=== PATIENT | female | born 2000 | race Caucasian/White ===

== ENCOUNTER 2020-02-10 20:12 | Emergency (ER) | payer BC, OTHER ==
[~2020-02-10] VITALS: Ht 160 cm; Wt 88.4 kg
[2020-02-10] MEDS ORDERED: KETOROLAC 30 MG/ML VIAL IVP ONE (20:30)
[2020-02-10 20:40] LABS: BASOPHILS % (AUTO) 0 % (0-10); EOSINOPHILS # (AUTO) 0.2 10^3/uL (0.0-0.3); EOSINOPHILS % (AUTO) 2 % (0-10); HEMATOCRIT 39 % (35-52); HEMOGLOBIN 12.9 G/DL (11.5-16.0); LYMPHOCYTES % (AUTO) 36 % (12-44); MEAN CORPUSCULAR HEMOGLOBIN 31 PG (25-34); MEAN CORPUSCULAR HGB CONC 33 G/DL (32-36); MEAN CORPUSCULAR VOLUME 93 FL (80-99); MEAN PLATELET VOLUME 10.4 FL (7.4-10.4); MONOCYTES # (AUTO) 0.6 X 10^3 (0.0-1.0); MONOCYTES % (AUTO) 6 % (0-12); NEUTROPHILS # (AUTO) 6.2 X 10^3 (1.8-7.8); NEUTROPHILS % (AUTO) 57 % (42-75); PLATELET COUNT 318 10^3/uL (130-400); RED CELL DISTRIBUTION WIDTH 13.2 % (10.0-14.5)
--- NOTE | 2020-02-10 20:41 | ED Chest Pain ---
General Stated Complaint: CP Source: patient Exam Limitations: no limitations History of Present Illness Date Seen by Provider: Feb 10, 2020 Time Seen by Provider: 20:39 Initial Comments To ER with reports of central chest pain sharp in nature since this morning. No shortness of breath. She is currently on clindamycin for some swollen lymph nodes in her neck suspected to be related to a infected left lower molar. No fevers. Timing/Duration: changing over time Severity/Quality: moderate Location: other Radiation: neck Activities at Onset: none ASA po CONSTRUCTION COORDINATOR: No NTG SL CONSTRUCTION COORDINATOR: No Allergies and Home Medications Allergies Coded Allergies: No Known Drug Allergies (Unverified , 02/10/20) Patient Home Medication List Home Medication List Reviewed: Yes Review of Systems Review of Systems Constitutional: see HPI; No chills, No fever EENTM: No Symptoms Reported Respiratory: See HPI Cardiovascular: No Symptoms Reported Gastrointestinal: No Symptoms Reported Genitourinary: No Symptoms Reported Musculoskeletal: no symptoms reported Skin: no symptoms reported Psychiatric/Neurological: No Symptoms Reported Endocrine: No Symptoms Reported Hematologic/Lymphatic: No Symptoms Reported Past Kqzdbfw-Wrtxtv-Bbuzck Hx Patient Social History Recent Foreign Travel: No Contact w/Someone Who Travel: No Physical Exam Vital Signs Capillary Refill : Height, Weight, BMI Height: '" Weight: lbs. oz. kg; BMI Method: General Appearance: No Apparent Distress, WD/WN Neck: Full Range of Motion, Normal Inspection; No Lymphadenopathy (L), No Lymphadenopathy (R) Respiratory: Lungs Clear, Normal Breath Sounds, No Accessory Muscle Use, No Respiratory Distress Cardiovascular: Regular Rate, Rhythm, Normal Peripheral Pulses Gastrointestinal: Normal Bowel Sounds, Non Tender, Soft Extremity: Normal Capillary Refill, Normal Inspection Neurologic/Psychiatric: Alert, Oriented x3 Skin: Normal Color, Warm/Dry Progress/Results/Core Measures Results/Orders Lab Results Laboratory Tests Test 02/10/20 20:25 Range/Units White Blood Count 11.0 4.3-11.0 10^3/uL Red Blood Count 4.21 L 4.35-5.85 10^6/uL Hemoglobin 12.9 11.5-16.0 G/DL Hematocrit 39 35-52 % Mean Corpuscular Volume 93 80-99 FL Mean Corpuscular Hemoglobin 31 25-34 PG Mean Corpuscular Hemoglobin Concent 33 32-36 G/DL Red Cell Distribution Width 13.2 10.0-14.5 % Platelet Count 318 130-400 10^3/uL Mean Platelet Volume 10.4 7.4-10.4 FL Neutrophils (%) (Auto) 57 42-75 % Lymphocytes (%) (Auto) 36 12-44 % Monocytes (%) (Auto) 6 0-12 % Eosinophils (%) (Auto) 2 0-10 % Basophils (%) (Auto) 0 0-10 % Neutrophils # (Auto) 6.2 1.8-7.8 X 10^3 Lymphocytes # (Auto) 4.0 1.0-4.0 X 10^3 Monocytes # (Auto) 0.6 0.0-1.0 X 10^3 Eosinophils # (Auto) 0.2 0.0-0.3 10^3/uL Basophils # (Auto) 0.0 0.0-0.1 10^3/uL Sodium Level 137 135-145 MMOL/L Potassium Level 3.8 3.6-5.0 MMOL/L Chloride Level 104 98-107 MMOL/L Carbon Dioxide Level 24 21-32 MMOL/L Anion Gap 9 5-14 MMOL/L Blood Urea Nitrogen 7 7-18 MG/DL Creatinine 0.74 0.60-1.30 MG/DL Estimat Glomerular Filtration Rate > 60 BUN/Creatinine Ratio 9 Glucose Level 115 H 70-105 MG/DL Calcium Level 9.0 8.5-10.1 MG/DL Corrected Calcium 8.8 8.5-10.1 MG/DL Total Bilirubin 0.3 0.1-1.0 MG/DL Aspartate Amino Transf (AST/SGOT) 19 5-34 U/L Alanine Aminotransferase (ALT/SGPT) 19 0-55 U/L Alkaline Phosphatase 77 40-136 U/L C-Reactive Protein High Sensitivity 0.53 H 0.00-0.50 MG/DL Total Protein 7.4 6.4-8.2 GM/DL Albumin 4.2 3.2-4.5 GM/DL Serum Test, Qualitative NEGATIVE NEGATIVE My Orders Orders - JENIFER CHONG APRN Cbc With Automated Diff (02/10/20 20:30) Comprehensive Metabolic Panel (02/10/20 20:30) Hcg,Qualitative Serum (02/10/20 20:30) Hs C Reactive Protein (02/10/20 20:30) Ekg Tracing (02/10/20 20:30) Chest Pa/Lat (2 View) (02/10/20 20:30) Ed Iv/Invasive Line Start (02/10/20 20:30) Ketorolac Injection (Toradol Injection) (02/10/20 20:30) Medications Given in ED Current Medications Medications Dose Ordered Sig/Leoncio Route Start Time Stop Time Status Last Admin Dose Admin Ketorolac Tromethamine 15 mg ONCE ONCE IVP 02/10/20 20:30 02/10/20 20:33 DC 02/10/20 20:49 15 MG Departure Impression Primary Impression: Chest pain Qualified Codes: R07.9 - Chest pain, unspecified Disposition: HOME, SELF-CARE Condition: Stable Departure-Patient Inst. Decision time for Depature: 21:08 Referrals: NO,LOCAL PHYSICIAN (PCP/Family) Primary Care Physician Patient Instructions: Chest Pain (DC) Add. Discharge Instructions: 1. Return to ER for any concerns 2. FOllow up with your doctor next week. Continue the clindamycin. JENIFER CHONG PRODUCTION SUPPORT CONSULTANT Feb 10, 2020 20:41
[2020-02-10 20:50] LABS: ALANINE AMINOTRANSFERASE 19 U/L (0-55); ALBUMIN 4.2 GM/DL (3.2-4.5); ALKALINE PHOSPHATASE 77 U/L (40-136); BILIRUBIN,TOTAL 0.3 MG/DL (0.1-1.0); BUN/CREATININE RATIO 9; CARBON DIOXIDE 24 MMOL/L (21-32); CHLORIDE 104 MMOL/L (98-107); CREATININE SERUM 0.74 MG/DL (0.60-1.30); GFR ESTIMATED > 60; GLUCOSE 115 MG/DL (70-105); POTASSIUM 3.8 MMOL/L (3.6-5.0); SODIUM 137 MMOL/L (135-145); TOTAL PROTEIN 7.4 GM/DL (6.4-8.2)
--- NOTE | 2020-02-10 21:04 | Diagnostic Imaging Report ---
Indication: Chest pain PA and lateral chest Heart size and pulmonary vascularity are normal. Lungs are clear. There are no effusions or pneumothoraces. IMPRESSION: Negative chest Dictated by: Dictated on workstation # [id number]
[2020-02-10 21:18] VITALS: BP 116/68
--- OUTSIDE RECORDS SUMMARY | 2020-02-11 00:22 | XMS REPORT | Continuity of Care Document ---
Author Organization Unknown Address Unknown Phone Unavailable Allergies Active Description Code Type Severity Reaction Onset Reported/Identified Relationship to Patient Clinical Status Yes BACTRIM DS BACTRIM DS SEVERE Yes Bactrim Drug Allergy N/A N/A 05/27/2014 Yes codeine Drug Allergy N/A N/A 05/27/2014 Yes No Known Drug Allergies [id number] Drug Allergy Unknown N/A 02/10/2020 Medications There is no data. Problems Date Dx Coded Attending Type Code Diagnosis Diagnosed By 05/27/2014 AMISHA FUENTES MD 278. 00 OBESITY UNSPECIFIED 05/27/2014 AMISHA FUENTES MD 314. 01 ADHD, COMBINED TYPE 05/27/2014 AMISHA FUENTES MD 780. 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 06/02/2014 296.32 SID OR DEPRESSIVE AFFECTIVE DISORDER RECURRENT EPISODE MODERATE DEGREE 06/29/2014 296.25 SID OR DEPRESSIVE AFFECTIVE DISORDER SINGLE EPISODE IN PARTIAL OR UNSPECIFIED REMISSION 06/29/2014 788.1 DYSURIA Procedures Code Description [place] [address] CMP (COMPREHENSIVE METABOLIC PANEL) 05/31/2014 12714 LIPI D PANEL (OUTSIDE LAB) 05/31/2014 54428 TSH W/ REFLEX T4 FREE 05/31/2014 46637 CBC, COMPLETE, W/AUTO DIFF WBC 05/31/2014 47205 INIT IAL CONSULT 06/03/2014 08824 URIN E TEST (IN HOUSE) 06/29/2014 69750 URIN E CULTURE AND SENSITIVITY 06/29/2014 51274 INTE RACTIVE PLAY 20-30 MINUTES 06/30/2014 Results Test Result Range Urinalysis - 11/29/16 18:00 Icotest N/A Negative Urine Crystals Amorphous material: few/HPF Urine Volume Urine Volume Sufficient (10mL) Urine-Appearance Clear Clear Urine-Bacteria Trace Urine-Bilirubin Negative Negative Urine-Blood Negative Negative Urine-Color Yellow Colorless-[place]t. [place] ow Urine-Epithelial Cells 0-5/HPF Urine-Glucose Negative Negative Urine-Ketones Negative Negative Urine-Leukocytes Negative Negative Urine-Nitrite Negative Negative Urine-Other Culture to follow Urine-pH 5.5 5-8.5 Urine-Protein Negative Negative Urine-RBC 0-2/HPF Urine-Specific [place] 1.020 1.000-1 .030 Urine-WBC 2-5/HPF Urobilinogen 0.2 0.2-1.0 Urine Culture - 11/29/16 18:00 FINAL CULTURE RESULTS 10,000-20,000 Gram Pos itive Mixed [id number] Probable Skin [id number] No Further Workup done MEDIA PLATED Setup at 18:00 11/29/2016 CULTURE SOURCE voided urine/clinic collection Complete blood count (CBC) with automate d white blood cell (WBC) differential - 02/10/20 20:25 Blood leukocytes automated count (number/volume) 11.0 10*3/uL 4.3-11.0 Blood erythrocytes automated count (number/volume) 4.21 10*6/uL 4.35-5.85 Venous blood hemoglobin measurement (mass/volume) 12.9 g/dL 11.5-16.0 Blood hematocrit (volume fraction) 39 % 35-52 Automated erythrocyte mean corpuscular volume 93 [ foz_us] 80-99 Automated erythrocyte mean corpuscular h emoglobin (mass per erythrocyte) 31 pg 25-34 Automated erythrocyte mean corpuscular h emoglobin concentration measurement (mass/volume) 33 g/dL 32-36 Automated erythrocyte distribution width ratio 13. 2 % 10.0- 14.5 Automated blood platelet count (count/volume) 318 10*3/uL 130-400 Automated blood platelet mean volume measurement 10.4 [foz_us] 7.4-10.4 Automated blood neutrophils/100 leukocytes 57 % 42-75 Automated blood lymphocytes/100 leukocytes 36 % 12-44 Blood monocytes/100 leukocytes 6 % 0-12 Automated blood eosinophils/100 leukocytes 2 % 0-10 Automated blood basophils/100 leukocytes 0 % 0-10 Blood neutrophils automated count (number/volume) 6.2 10*3 1.8-7.8 Blood lymphocytes automated count (number/volume) 4.0 10*3 1.0-4.0 Blood monocytes automated count (number/volume) 0. 6 10*3 0.0-1.0 Automated eosinophil count 0.2 10*3/uL 0 .0-0.3 Automated blood basophil count (count/volume) 0.0 10*3/uL 0.0-0.1 Serum or plasma choriogonadotropin (preg tino test) detection - 02/10/20 20:25 Serum or plasma choriogonadotropin ( test) de tection NEGATIVE NEGATIVE Comprehensive metabolic panel - 02/10/20 20:25 Serum or plasma sodium measurement (moles/volume) 137 mmol/L 135-145 Serum or plasma potassium measurement (moles/volume) 3.8 mmol/L 3.6-5.0 Serum or plasma chloride measurement (moles/volume) 104 mmol/L 98-107 Carbon dioxide 24 mmol/L 21-32 Serum or plasma anion gap determination (moles/volume) 9 mmol/L 5-14 Serum or plasma urea nitrogen measurement (mass/volume ) 7 mg/dL 7-18 Serum or plasma creatinine measurement (mass/volume) 0.74 mg/dL 0.60-1.30 Serum or plasma urea nitrogen/creatinine mass ratio 9 NRG Serum or plasma creatinine measurement w ith calculation of estimated glomerular filtration rate > NRG Serum or plasma glucose measurement (mass/volume) 115 mg/dL 70-105 Serum or plasma calcium measurement (mass/volume) 9.0 mg/dL 8.5-10.1 Serum or plasma total bilirubin measurement (mass/volu me) 0.3 mg/dL 0.1-1.0 Serum or plasma alkaline phosphatase yee surement (enzymatic activity/volume) 77 U/L 40-136 Serum or plasma aspartate aminotransfera se measurement (enzymatic activity/volume) 19 U/L 5-34 Serum or plasma alanine aminotransferase measurement (enzymatic activity/volume) 19 U/L 0-55 Serum or plasma protein measurement (mass/volume) 7.4 g/dL 6.4-8.2 Serum or plasma albumin measurement (mass/volume) 4.2 g/dL 3.2-4.5 CALCIUM CORRECTED 8.8 mg/dL 8.5-10.1 Serum or plasma C reactive protein measu rement (mass/volume) - 02/10/20 20:25 Serum or plasma C reactive protein measurement (mass/v olume) 0.53 mg/dL 0.00-0.50 Encounters ACCT No. Visit Date/Time Discharge Status Pt. Type Provider Facility Loc./Unit Complaint [id number] 11/29/2016 18:20:00 11/29/2016 23:59: 00 DIS Outpatient Winter Alberto [id number] 02/10/2020 20:14:00 020 21:33:00 DIS Emergency JENIFER CHONG [place] [facility] [place] [id number] 06/29/2014 14:03:00 06/29/2014 23:59:5 9 CLS Outpatient [id number] 06/02/2014 15:24:00 06/02/2014 23:59:5 9 CLS Outpatient RIVERA WINN [id number] 05/27/2014 17:17:00 05/27/2014 23:59:5 9 CLS Outpatient GINA ROSE, AMISHA
== END 2020-02-10 21:33 | disposition home or self-care (01) ==
LOC: EDUNIT# 20:12 → ER 20:14
DX: R07.9 Chest pain, unspecified (principal)
CPT/HCPCS: 36415; 71046; 80053; 84703; 85025; 86141; 93005

== ENCOUNTER 2021-04-14 01:40 | Emergency (ER) | payer BC ==
[~2021-04-14] VITALS: Ht 160 cm; Wt 88.0 kg
[2021-04-14 02:50] LABS: BILIRUBIN,URINE NEGATIVE (NEGATIVE); CLARITY,URINE CLEAR; COLOR,URINE YELLOW; GLUCOSE, URINE (UA) NEGATIVE (NEGATIVE); KETONES,URINE NEGATIVE (NEGATIVE); LEUKOCYTE ESTERASE ,URINE NEGATIVE (NEGATIVE); NITRITE,URINE NEGATIVE (NEGATIVE); PROTEIN,URINE NEGATIVE (NEGATIVE)
[2021-04-14 02:58] LABS: BACTERIA,URINE NEGATIVE /HPF
[2021-04-14 03:16] LABS: BASOPHILS % (AUTO) 0 % (0-10); EOSINOPHILS # (AUTO) 0.2 10^3/uL (0.0-0.3); EOSINOPHILS % (AUTO) 2 % (0-10); HEMATOCRIT 40 % (35-52); HEMOGLOBIN 13.4 g/dL (11.5-16.0); LYMPHOCYTES # (AUTO) 4.7 10^3/uL (1.0-4.0); LYMPHOCYTES % (AUTO) 42 % (12-44); MEAN CORPUSCULAR HEMOGLOBIN 32 pg (25-34); MEAN CORPUSCULAR HGB CONC 33 g/dL (32-36); MEAN CORPUSCULAR VOLUME 95 fL (80-99); MEAN PLATELET VOLUME 10.6 fL (9.0-12.2); MONOCYTES # (AUTO) 0.6 10^3/uL (0.0-1.0); MONOCYTES % (AUTO) 6 % (0-12); NEUTROPHILS # (AUTO) 5.5 10^3/uL (1.8-7.8); NEUTROPHILS % (AUTO) 49 % (42-75); PLATELET COUNT 260 10^3/uL (130-400); WHITE BLOOD COUNT 11.2 10^3/uL (4.3-11.0)
[2021-04-14 03:25] LABS: POTASSIUM 3.7 MMOL/L (3.6-5.0)
[2021-04-14 03:26] LABS: CALCIUM 9.3 MG/DL (8.5-10.1)
[2021-04-14 03:27] LABS: TOTAL PROTEIN 6.8 GM/DL (6.4-8.2)
[2021-04-14 03:29] LABS: BILIRUBIN,TOTAL 0.3 MG/DL (0.1-1.0)
[2021-04-14 03:31] LABS: CREATININE SERUM 0.69 MG/DL (0.60-1.30)
[2021-04-14] MEDS ORDERED: HOLD METFORMIN - RECEIVED CONTRAST 20 ML VIAL IV SCH (04:45)
[2021-04-14] MEDS ORDERED: NS 100 ML (IVPB) BAG IV ONE (04:45)
[2021-04-14] MEDS ORDERED: IOHEXOL 350 MG/ML 100 ML (OMNIPAQUE 350) VIAL IV ONE (04:45)
--- NOTE | 2021-04-14 05:48 | ED Abdominal Pain ---
General Chief Complaint: Abdominal/GI Problems Stated Complaint: ABD PAIN Nursing Triage Note: PT AMBULATES TO ROOM #5 W/CO NAUSEA AND ABD DISCOMFORT. PT REPORTS UPON RISE ON 04/13/21 SHE BEGAN TO EXPERIENCE PERIUMBILICAL PAIN RADIATING DISTALLY. PT DESCRIBED DISCOMFORT "A CONSTANT DULL ACHE." PT REPORTS PAIN TO BE ACCOMPANIED BY NAUSEA. Source of Information: Patient History of Present Illness Date Seen by Provider: Apr 14, 2021 Time Seen by Provider: 02:30 Initial Comments PT ARRIVES VIA POV FROM HOME PT HAS HAD SHELLEY-UMBILICAL AND MID LOWER ABDOMINAL PAIN/SUPRAPUBIC/INFRA-UMB ILICAL PAIN SINCE YESTERDAY NO FLANK PAIN C/O NAUSEA, NO VOMITING HAD A NORMAL BM YESTERDAY NO FEVER NO URINARY SYMPTOMS NO VAGINAL BLEEDING OR DISCHARGE OR EMS MANAGER COMPLAINTS,. NO DYSPAREUNIA LMP 04/03/22. STATES SHE AND HER BOYFRIEND ARE TRYING TO GET PT HAS A 3 Y.O. CHILD AT HOME, WHICH SHE DOES LIFT FREQUENTLY HAS NOT TAKEN ANYTHING FOR PAIN NO HISTORY OF SIMILAR NO PRIOR ABDOMINAL SURGERIES OR GI PROBLEMS DENIES COVID-19 SYMPTOMS OR EXPOSURE PT JUST MOVED HERE THIS WEEK FROM [place] DENIES ANY HEAVY LIFTING, BUT HAS BEEN PACKING AND UNPACKING BOXES THIS WEEK PCP: NONE Allergies and Home Medications Allergies Coded Allergies: No Known Drug Allergies (Unverified , 02/10/20) Home Medications Ondansetron 4 Mg Tab.rapdis, 4 MG PO Q4H Prescribed by: LEONEL HOPKINS on 04/14/21 06 Pantoprazole Sodium 40 Mg Tablet.dr, 40 MG PO DAILY Prescribed by: LEONEL HOPKINS on 04/14/21 06 Tramadol HCl 50 Mg Tablet, 50 MG PO Q4H Prescribed by: LEONEL HOPKINS on 04/14/21 06 Patient Home Medication List Home Medication List Reviewed: Yes Review of Systems Review of Systems Constitutional: no symptoms reported Respiratory: No Symptoms Reported Cardiovascular: No Symptoms Reported Gastrointestinal: See HPI, Abdominal Pain; Denies Constipated, Denies Diarrhea; Nausea; Denies Vomiting Genitourinary: No Symptoms Reported Musculoskeletal: no symptoms reported; No back pain Skin: no symptoms reported Psychiatric/Neurological: No Symptoms Reported Endocrine: No Symptoms Reported Hematologic/Lymphatic: No Symptoms Reported Past Epotjyc-Pavabh-Vowbgd Hx Patient Social History Tobacco Use?: No Substance use?: No Alcohol Use?: No Pt feels they are or have been: No Seasonal Allergies Seasonal Allergies: No Past Medical History Surgeries: No Respiratory: No Cardiac: No Neurological: No : No Hx Para: 1 Reproductive Disorders: No Genitourinary: No Gastrointestinal: No Musculoskeletal: No Endocrine: No HEENT: No Cancer: No Psychosocial: No Integumentary: No Blood Disorders: No Physical Exam Vital Signs Vital Signs - First Documented 04/14/21 02:30 Temp 36.0 Pulse 107 Resp 16 B/P (MAP) 128/74 (92) Pulse Ox 100 O2 Delivery Room Air Capillary Refill : Less Than 3 Seconds Height/Weight/BMI Height: '" Weight: lbs. oz. kg; 34.00 BMI Method: General Appearance: WD/WN, no apparent distress, obese, other (WALKS UPRIGHT AND MOVES WITHOUT DIFFICULTY) Respiratory: normal breath sounds, no respiratory distress, no accessory muscle use Cardiovascular: regular rate, rhythm, no edema, no JVD, no murmur Gastrointestinal: normal bowel sounds, non tender, soft, no organomegaly, other (ABDOMEN IS NOT TENDER AT ALL) Extremities: normal inspection Back: normal inspection, no CVA tenderness Neurologic/Psychiatric: weatherseal technician II-XII nml as tested, no motor/sensory deficits, alert, normal mood/affect, oriented x 3 Skin: normal color, warm/dry, tattoos/piercings (MULTIPLE TATTOOS) Progress/Results/Core Measures Results/Orders Lab Results Laboratory Tests Test 04/14/21 02:35 04/14/21 03:10 Range/Units Urine Color YELLOW Urine Clarity CLEAR Urine pH 6.0 5-9 Urine Specific [place] <=1.005 1.016-1.022 Urine Protein NEGATIVE NEGATIVE Urine Glucose (UA) NEGATIVE NEGATIVE Urine Ketones NEGATIVE NEGATIVE Urine Nitrite NEGATIVE NEGATIVE Urine Bilirubin NEGATIVE NEGATIVE Urine Urobilinogen 0.2 < = 1.0 MG/DL Urine Leukocyte Esterase NEGATIVE NEGATIVE Urine RBC (Auto) NEGATIVE NEGATIVE Urine RBC NONE /HPF Urine WBC NONE /HPF Urine Squamous Epithelial Cells 2-5 /HPF Urine Renal Epithelial Cells NONE /HPF Urine Crystals NONE /LPF Urine Bacteria NEGATIVE /HPF Urine Casts NONE /LPF Urine Mucus NEGATIVE /LPF Urine Culture Indicated NO White Blood Count 11.2 H 4.3-11.0 10^3/uL Red Blood Count 4.24 3.80-5.11 10^6/uL Hemoglobin 13.4 11.5-16.0 g/dL Hematocrit 40 35-52 % Mean Corpuscular Volume 95 80-99 fL Mean Corpuscular Hemoglobin 32 25-34 pg Mean Corpuscular Hemoglobin Concent 33 32-36 g/dL Red Cell Distribution Width 11.9 10.0-14.5 % Platelet Count 260 130-400 10^3/uL Mean Platelet Volume 10.6 9.0-12.2 fL Immature Granulocyte % (Auto) 0 % Neutrophils (%) (Auto) 49 42-75 % Lymphocytes (%) (Auto) 42 12-44 % Monocytes (%) (Auto) 6 0-12 % Eosinophils (%) (Auto) 2 0-10 % Basophils (%) (Auto) 0 0-10 % Neutrophils # (Auto) 5.5 1.8-7.8 10^3/uL Lymphocytes # (Auto) 4.7 H 1.0-4.0 10^3/uL Monocytes # (Auto) 0.6 0.0-1.0 10^3/uL Eosinophils # (Auto) 0.2 0.0-0.3 10^3/uL Basophils # (Auto) 0.0 0.0-0.1 10^3/uL Immature Granulocyte # (Auto) 0.1 0.0-0.1 10^3/uL Sodium Level 142 135-145 MMOL/L Potassium Level 3.7 3.6-5.0 MMOL/L Chloride Level 103 98-107 MMOL/L Carbon Dioxide Level 26 21-32 MMOL/L Anion Gap 13 5-14 MMOL/L Blood Urea Nitrogen 8 7-18 MG/DL Creatinine 0.69 0.60-1.30 MG/DL Estimat Glomerular Filtration Rate 106 BUN/Creatinine Ratio 12 Glucose Level 106 H 70-105 MG/DL Calcium Level 9.3 8.5-10.1 MG/DL Corrected Calcium 9.3 8.5-10.1 MG/DL Total Bilirubin 0.3 0.1-1.0 MG/DL Aspartate Amino Transf (AST/SGOT) 18 5-34 U/L Alanine Aminotransferase (ALT/SGPT) 21 0-55 U/L Alkaline Phosphatase 71 40-136 U/L Total Protein 6.8 6.4-8.2 GM/DL Albumin 4.0 3.2-4.5 GM/DL Amylase Level 34 25-125 U/L Lipase 22 8-78 U/L My Orders Orders - LEONEL HOPKINS DO Urine Bedside (04/14/21 02:28) Ua Culture If Indicated (04/14/21 02:28) Ed Iv/Invasive Line Start (04/14/21 03:03) Amylase (04/14/21 03:03) Cbc With Automated Diff (04/14/21 03:03) Comprehensive Metabolic Panel (04/14/21 03:03) Lipase (04/14/21 03:03) Ct Abd/Pelv W (Appendicitis) (04/14/21 03:03) Iohexol Injection (Omnipaque 350 Mg/Ml 1 (04/14/21 04:45) Received Contrast (Hold Metformin- Contr (04/14/21 04:45) Ns (Ivpb) (Sodium Chloride 0.9% Ivpb Bag (04/14/21 04:45) Medications Given in ED Current Medications Medications Dose Ordered Sig/Leoncio Route Start Time Stop Time Status Last Admin Dose Admin Iohexol 100 ml ONCE ONCE IV 04/14/21 04:45 04/14/21 04:46 DC 04/14/21 04:46 100 ML Sodium Chloride 80 ml ONCE ONCE IV 04/14/21 04:45 04/14/21 04:46 DC 04/14/21 04:46 80 ML Vital Signs/I&O 04/14/21 02:30 Temp 36.0 Pulse 107 Resp 16 B/P (MAP) 128/74 (92) Pulse Ox 100 O2 Delivery Room Air Blood Pressure Mean: 92 Progress Progress Note : Progress Note PT DECLINES ANY PAIN MEDICATIONS OR NAUSEA MEDICATIONS AT THIS TIME NO DETERIORATION IN PT'S CONDITION DURING ER STAY MARKED DELAY IN OBTAINING CT REPORT Diagnostic Imaging Comments CT ABDOMEN/PELVIS--CHOLELITHIASIS, PER STAT RAD VIA Departure Impression Primary Impression: Cholelithiasis Disposition: 01 HOME, SELF-CARE Condition: Stable Departure-Patient Inst. Decision time for Depature: 05:56 Referrals: AVERY CORREIA DO Patient Instructions: Gallstones (DC), Abdominal Pain, Adult ED Add. Discharge Instructions: CLEAR LIQUIDS--WATER, BROTH, JELLO, GATORAD BRATS DIET--BANANAS, RICE, APPLESAUCE, TOAST, SALTINES FOLLOW UP WITH DR. CORREIA, SURGEON, NEXT WEEK FOR FURTHER CARE RETURN TO ER IF WORSE All discharge instructions reviewed with patient and/or family. Voiced understanding. Scripts Pantoprazole Sodium (Protonix) 40 Mg Tablet.dr 40 MG PO DAILY, #15 TAB Prov: LEONEL HOPKINS DO 04/14/21 Tramadol HCl (Ultram) 50 Mg Tablet 50 MG PO Q4H for Pain, #20 TAB Prov: LEONEL HOPKINS DO 04/14/21 Ondansetron (Ondansetron Odt) 4 Mg Tab.rapdis 4 MG PO Q4H for Nausea/Vomiting, #10 TAB Prov: LEONEL HOPKINS DO 04/14/21 LEONEL HOPKINS DO Apr 14, 2021 05:48
[2021-04-14] MEDS ORDERED: ONDA4TAB11 PO (06:09)
[2021-04-14] MEDS ORDERED: TRAM-42 PO (06:09)
[2021-04-14] MEDS ORDERED: PANT40TA2 PO (06:09)
--- NOTE | 2021-04-14 06:16 | Diagnostic Imaging Report ---
CT ABD/PELV W (APPENDICITIS) TECHNIQUE: Multiple contiguous axial images were obtained through the abdomen and pelvis after administration of intravenous contrast. All CT scans use one or more of the following dose optimizing techniques: automated exposure control, MA and/or KvP adjustment based on patient size and exam type or iterative reconstruction. INDICATION: Right lower quadrant pain COMPARISON: None available. FINDINGS: Lower chest: The lung bases are clear. No pericardial or pleural effusion. Peritoneum: No free intraperitoneal air or fluid. Liver and biliary system: The liver is normal. Cholelithiasis without features of acute cholecystitis. No biliary duct dilatation. Spleen and Pancreas: Spleen is normal. The pancreas enhances normally without mass lesion or peripancreatic inflammatory changes. Adrenals: Normal. tract: Mild dilation of the right ureter when compared to the left. No perinephric stranding or features that would suggest pyelonephritis. No appreciable calculus in the ureters. Urinary bladder is partially filled without wall thickening. Uterus and ovaries are normal in appearance. GI tract: Stomach is decompressed. No bowel obstruction. No pericolonic inflammatory changes. Normal appendix Vasculature and Lymph nodes: Normal caliber aorta. No abdominal or pelvic lymphadenopathy. Musculoskeletal: No concerning osseous lesion. IMPRESSION: 1. Mild asymmetric dilation of the right ureter is most likely physiologic versus less likely recently passed stone. Correlation with urinalysis is suggested. 2. Otherwise, no acute abnormality. 3. Cholelithiasis. Dictated by: Dictated on workstation # [id number]
[2021-04-14 06:20] VITALS: BP 109/79
== END 2021-04-14 06:20 | disposition home or self-care (01) ==
LOC: EDUNIT# 01:40 → ER 01:48
DX: K80.20 Calculus of gallbladder without cholecystitis without obstruction (principal); E66.9 Obesity, unspecified; Z68.34 Body mass index [BMI] 34.0-34.9, adult
CPT/HCPCS: 36415; 74177; 80053; 81000; 82150; 83690; 84703; 85025

== ENCOUNTER 2021-11-04 00:43 | Emergency (ER) | payer BC ==
[~2021-11-04] VITALS: Ht 160 cm; Wt 90.7 kg
[~2021-11-04 00:43] MED LIST: ONDA4TAB11 PO; PANT40TA2 PO; TRAM-42 PO
[2021-11-04 00:45] VITALS: BP 145/110
[2021-11-04] MEDS ORDERED: METH4TAB10 PO (01:11)
--- NOTE | 2021-11-04 01:11 | ED Integumentary General ---
General Chief Complaint: Allergic Reaction Stated Complaint: ALLERGIC RXN Nursing Triage Note: Pt arrives via POV from home for c/o itching/burning rash to the neck et upper trunk; onset one hour ago. Pt reports NKA. Pt denies new soaps/detergents; does report increased stress r/t new job. Source: patient Exam Limitations: no limitations History of Present Illness Date Seen by Provider: Nov 04, 2021 Time Seen by Provider: 00:48 Initial Comments Patient to the ER by private conveyance from home with chief complaint of a bright red itchy rash across her anterior neck and upper trunk. She took 2 tablets of Benadryl. Started about an hour ago and spread quickly across to her trunk and neck. She is not having shortness of breath difficulty swallowing or thickness of her tongue. She has never had anaphylaxis. She is not on any medications. She denies any new soaps or detergents. She says she had a little panic attack because it was on her neck and worried that maybe she was having a severe anaphylactic reaction. Allergies and Home Medications Allergies Coded Allergies: No Known Drug Allergies (Unverified , 02/10/20) Patient Home Medication List Home Medication List Reviewed: Yes Ondansetron (Ondansetron Odt) 4 Mg Tab.rapdis, 4 MG PO Q4H Prescribed by: LEONEL HOPKINS on 04/14/21 06 Pantoprazole Sodium (Protonix) 40 Mg Tablet.dr, 40 MG PO DAILY Prescribed by: LEONEL HOPKINS on 04/14/21 06 Tramadol HCl (Ultram) 50 Mg Tablet, 50 MG PO Q4H Prescribed by: LEONEL HOPKINS on 04/14/21 0610 Review of Systems Review of Systems Constitutional: No chills, No diaphoresis EENTM: No ear discharge, No ear pain Respiratory: No cough, No short of breath Cardiovascular: No chest pain, No edema Gastrointestinal: No abdominal pain, No heartburn, No nausea Genitourinary: No discharge, No dysuria Skin: see HPI All Other Systems Reviewed Negative Unless Noted: Yes Past Cmzhcfw-Egsxcc-Dioofo Hx Patient Social History Tobacco Use?: No Use of E-Cig and/or Vaping dev: No Substance use?: Yes Substance type: Marijuana Substance frequency: Once in a while Alcohol Use?: No Pt feels they are or have been: No Immunizations Up To Date Influenza Vaccine Up-to-Date: No; Not Current Seasonal Allergies Seasonal Allergies: No Past Medical History Surgeries: No Respiratory: No Cardiac: No Neurological: No Reproductive Disorders: No Genitourinary: No Gastrointestinal: No Musculoskeletal: No Endocrine: No HEENT: No Cancer: No Psychosocial: No Integumentary: No Blood Disorders: No Physical Exam Vital Signs Vital Signs - First Documented Capillary Refill : Less Than 3 Seconds General Appearance: WD/WN, no apparent distress HEENT: PERRL/EOMI, pharynx normal Neck: non-tender, full range of motion, supple, other (Rash across the anterior neck without lymphadenopathy) Cardiovascular: normal peripheral pulses, regular rate, rhythm Respiratory: no respiratory distress, no accessory muscle use Skin: rash (Erythematous, blanchable, nonraised confluence macular rash across the bilateral anterior neck and clavicles bilaterally. No wheals, blisters.) Progress/Results/Core Measures Results/Orders Vital Signs/I&O 11/04/21 11/04/21 00:45 00:45 Temp 36.7 Pulse 87 Resp 18 B/P (MAP) 145/110 (122) Pulse Ox 98 O2 Delivery Room Air Room Air Blood Pressure Mean: 122 Progress Progress Note : Time: 01:09 Progress Note Instructed her to keep it moisturized with regular emollients, Zyrtec and/or Claritin, Benadryl and good return precautions. We will put her on a Medrol Dosepak if her symptoms do not get any better. Departure Impression Primary Impression: Urticaria Disposition: HOME, SELF-CARE Condition: Stable Departure-Patient Inst. Decision time for Depature: 01:10 Referrals: NO,LOCAL PHYSICIAN (PCP/Family) Primary Care Physician Patient Instructions: Skin Rash (DC), Hives (DC) Add. Discharge Instructions: Keep the skin well hydrated and clean. Hypoallergenic soaps and lotions are preferred. Promptly return to the nearest ER if your unable to swallow or having difficulty breathing. Benadryl 1 to 2 tablets every 6 hours as necessary for breakthrough itching. Zyrtec or Claritin 10 mg twice a day until the itching goes away. Expect resolution of symptoms in 1 to 2 weeks. If it persists for longer than a week then call your primary care doctor for reexamination. Medrol Dosepak take as directed. All discharge instructions reviewed with patient and/or family. Voiced understanding. Scripts Methylprednisolone (Methylprednisolone Dose Pack) 4 Mg Tab.ds.pk 4 MG PO UD for 6 Days, #21 PKG 0 Refills PER DOSE PACK INSTRUCTIONS Prov: BILLIE ORDAZ 11/04/21 BILLIE ORDAZ Nov 04, 2021 01:11
== END 2021-11-04 01:21 | disposition home or self-care (01) ==
LOC: EDUNIT# 00:43 → ER 00:45
DX: L50.9 Urticaria, unspecified (principal)
CPT/HCPCS: 99282

== ENCOUNTER 2022-02-15 07:46 | Emergency (ER) | payer BC ==
[~2022-02-15] VITALS: Ht 160 cm; Wt 87.5 kg
[~2022-02-15 07:46] MED LIST changes: +METH4TAB10 PO
[2022-02-15 08:03] LABS: BILIRUBIN,URINE NEGATIVE (NEGATIVE); CLARITY,URINE CLEAR; COLOR,URINE YELLOW; GLUCOSE, URINE (UA) NEGATIVE (NEGATIVE); KETONES,URINE NEGATIVE (NEGATIVE); LEUKOCYTE ESTERASE ,URINE TRACE (NEGATIVE); NITRITE,URINE NEGATIVE (NEGATIVE); PROTEIN,URINE NEGATIVE (NEGATIVE)
--- NOTE | 2022-02-15 08:11 | ED GU-Female ---
General Chief Complaint: Abdominal/GI Problems Stated Complaint: R SIDE PAIN - 6 WEEKS PREG Nursing Triage Note: This patient arrives to the ED with C/O right sided abdominal pain and states that she is about 6 weeks but "knows she is having a miscarriage." She states that she does have endometriosis and has been trying to get . Source: patient Exam Limitations: no limitations History of Present Illness Date Seen by Provider: Feb 15, 2022 Time Seen by Provider: 07:55 Initial Comments Here with report of right-sided abdominal pain and vaginal bleeding. States that she is approximately 6 weeks by dates with last month. At the end of December. She is actively trying to get . She has had 1 previous miscarriage and 1 live . This is her third . She has had hCG level drawn with her doctor, Dr. COBIAN. This apparently is declining and now she has increased vaginal bleeding and knows she is having a miscarriage but is worried about ectopic . Her mother apparently had an ectopic with similar symptoms. This caused some alarming the patient and she presented for further evaluation. Does have intermittent moderate to signif icant pain that is not severe currently and she is declining pain medicine. Denies other issues or concerns. Timing/Duration: yesterday, changing over time Severity/Quality: moderate, aching, cramping Location: RLQ, right flank Radiation: suprapubic Activities at Onset: none Sexual [place] History: less than 2 months ago Associated Symptoms: abdominal pain; No dysuria, No lower back pain, No nausea/vomiting Allergies and Home Medications Allergies Coded Allergies: No Known Drug Allergies (Unverified , 02/10/20) Patient Home Medication List Home Medication List Reviewed: Yes Methylprednisolone (Methylprednisolone Dose Pack) 4 Mg Tab.ds.pk, 4 MG PO UD Prescribed by: BILLIE ORDAZ on 11/04/21 0111 Ondansetron (Ondansetron Odt) 4 Mg Tab.rapdis, 4 MG PO Q4H Prescribed by: LEONEL HOPKINS on 04/14/21 06 Pantoprazole Sodium (Protonix) 40 Mg Tablet.dr, 40 MG PO DAILY Prescribed by: LEONEL HOPKINS on 04/14/21 06 Tramadol HCl (Ultram) 50 Mg Tablet, 50 MG PO Q4H Prescribed by: LEONEL HOPKINS on 04/14/21 0610 Review of Systems Review of Systems Constitutional: No chills, No fever Respiratory: No cough, No short of breath Cardiovascular: No chest pain, No palpitations Gastrointestinal: abdominal pain; No nausea, No vomiting Genitourinary: denies discharge, denies dysuria; pain, other : Yes LMP: Jan 05, 2022 Musculoskeletal: No back pain, No muscle pain Past Dgxiwdl-Ncvooj-Dppxyh Hx Patient Social History Tobacco Use?: No Use of E-Cig and/or Vaping dev: No Substance use?: No Seasonal Allergies Seasonal Allergies: No Past Medical History Surgeries: Yes Orthopedic, Tonsillectomy Respiratory: No Cardiac: No Neurological: No Last Menstrual Period: Dec 08, 2021 Hx : 3 Hx Para: 1 Hx Total # of Abortions (Sp): 2 Reproductive Disorders: Yes Female Reproductive Disorders: Endometriosis Genitourinary: No Gastrointestinal: No Musculoskeletal: No Endocrine: No HEENT: No Cancer: No Psychosocial: No Integumentary: No Blood Disorders: No Family Medical History Reviewed and Corrections made No Pertinent Family Hx Physical Exam Vital Signs Vital Signs - First Documented 02/15/22 07:50 Temp 36.3 Pulse 100 Resp 20 B/P (MAP) 137/85 (102) Pulse Ox 98 O2 Delivery Room Air Capillary Refill : Height, Weight, BMI Height: '" Weight: lbs. oz. kg; 34.00 BMI Method: General Appearance: WD/WN, no apparent distress Cardiovascular: regular rate, rhythm, no murmur Respiratory: lungs clear, normal breath sounds Gastrointestinal: normal bowel sounds, non tender, soft Back: normal inspection, no CVA tenderness, no vertebral tenderness Neurologic/Psychiatric: alert, oriented x 3 Skin: normal color, warm/dry Progress/Results/Core Measures Suspected Sepsis SIRS Temperature: Pulse: 100 Respiratory Rate: 20 Blood Pressure 137 /85 Mean: 102 Results/Orders Lab Results Laboratory Tests Test 02/15/22 07:50 02/15/22 08:12 Range/Units Urine Color YELLOW Urine Clarity CLEAR Urine pH 7.0 5-9 Urine Specific [place] <=1.005 1.016-1.022 Urine Protein NEGATIVE NEGATIVE Urine Glucose (UA) NEGATIVE NEGATIVE Urine Ketones NEGATIVE NEGATIVE Urine Nitrite NEGATIVE NEGATIVE Urine Bilirubin NEGATIVE NEGATIVE Urine Urobilinogen 0.2 < = 1.0 MG/DL Urine Leukocyte Esterase TRACE H NEGATIVE Urine RBC (Auto) 3+ H NEGATIVE Urine RBC 5-10 H /HPF Urine WBC 2-5 /HPF Urine Squamous Epithelial Cells 2-5 /HPF Urine Crystals NONE /LPF Urine Bacteria FEW H /HPF Urine Casts NONE /LPF Urine Mucus NEGATIVE /LPF Urine Culture Indicated YES Human Chorionic Gonadotropin, Quant 9 H <5 MIU/ML My Orders Orders - MARCELO APARICIO MD Ua Culture If Indicated (02/15/22 07:54) Hcg,Quantitative (02/15/22 07:54) Abo Rh Type (02/15/22 07:54) Us Ob<14 Wks Sngle W/Transvag (02/15/22 08:04) Urine Culture (02/15/22 07:50) Vital Signs/I&O 02/15/22 07:50 Temp 36.3 Pulse 100 Resp 20 B/P (MAP) 137/85 (102) Pulse Ox 98 O2 Delivery Room Air Capillary Refill : Blood Pressure Mean: 102 Progress Note : Progress Note Seen and evaluated. UA ordered. ABO Rh and hCG quantitative level ordered. We will get ultrasound OB evaluation. Patient declines pain medicine. Monitor patient. 912: Ultrasound results reviewed. No acute problems. Patient is O+. Quantitative hCG level was 9. At this point I believe this is miscarriage without concerns for ectopic. I will send a copy of the chart to Dr. Cobian. All of this was discussed with the patient. Discharged home with return precautions. Patient verbalized understanding of instructions and agreement with plan. Diagnostic Imaging Diagonstic Imaging: Ultrasound Plain Films/CT/US/NM/MRI: pelvis Comments [facility], [place] NAME: FRANKY VALENCIA [facility] REC#: [id number] PT STATUS: REG ER : 2000 PHYSICIAN: MARCELO APARICIO MD ADMIT DATE: 02/15/22/ER Draft Date of Exam:02/15/22 US OB<14 WKS SNGLE W/TRANSVAG INDICATION: Abdominal pain during Ultrasonography reveals mildly prominent endometrial thickness of 0.9 cm. Uterus measures 7.3 x 4.5 x 5.1 cm without evidence of gestational sac identified. There is blood flow to the ovaries bilaterally without evidence of adnexal mass or significant pelvic free fluid. IMPRESSION: No ultrasound evidence of intrauterine gestation or observed complication. Dictated on workstation # [id number] Dict: 02/15/22 0854 Trans: 02/15/22 0902 CHARLES [id number] Interpreted by: ILIANA COY MD Electronically signed by: Departure Impression Primary Impression: Miscarriage Disposition: 01 HOME, SELF-CARE Condition: Stable Departure-Patient Inst. Decision time for Depature: 09:15 Referrals: [facility] [place] (PCP/Family) Primary Care Physician Patient Instructions: Miscarriage (DC) Add. Discharge Instructions: All discharge instructions reviewed with patient and/or family. Voiced understanding. You may take ibuprofen 800 mg every 8 hours as needed for pain. You may also take Tylenol/acetaminophen 1000 mg every 8 hours as needed for pain. Follow-up with Dr. Cobian in a few days for recheck and further evaluation. Return for worse pain, increasing bleeding, foul-smelling vaginal discharge, weakness, breathing problems or other concerns as needed. Copy Copies To 1: LISA COBIAN MD, TIMOTHY D MD Feb 15, 2022 08:11
[2022-02-15 08:16] LABS: BACTERIA,URINE FEW /HPF
--- NOTE | 2022-02-15 09:02 | Diagnostic Imaging Report ---
INDICATION: Abdominal pain during Ultrasonography reveals mildly prominent endometrial thickness of 0.9 cm. Uterus measures 7.3 x 4.5 x 5.1 cm without evidence of gestational sac identified. There is blood flow to the ovaries bilaterally without evidence of adnexal mass or significant pelvic free fluid. IMPRESSION: No ultrasound evidence of intrauterine gestation or observed complication. Dictated by: Dictated on workstation # [id number]
[2022-02-15 09:30] VITALS: BP 137/85
== END 2022-02-15 09:24 | disposition home or self-care (01) ==
LOC: EDUNIT# 07:46 → ER 07:48
DX: O03.9 Complete or unspecified spontaneous abortion without complication (principal)
CPT/HCPCS: 36415; 76801; 76817; 81000; 84702; 86900; 86901; 87088

== ENCOUNTER 2022-08-21 19:42 | Emergency (ER) | payer BC ==
[~2022-08-21] VITALS: Ht 160 cm; Wt 79.3 kg
--- NOTE | 2022-08-21 21:25 | ED General ---
General Chief Complaint: Cough/Cold/Flu Symptoms Stated Complaint: FEVER OF 105*, BODY ACHES Nursing Triage Note: PT TO FT 1 WITH CC OF BODYACHES, VOMITING, COUGH AND FEVER SINCE LAST PM. PT REPROTS FEVER OF 105 TO NIGHT AND TOOK 200MG OF IBUPROFEN AT 1930. Source of Information: Patient Exam Limitations: No Limitations History of Present Illness Date Seen by Provider: Aug 21, 2022 Allergies and Home Medications Allergies Coded Allergies: No Known Drug Allergies (Unverified , 02/10/20) Patient Home Medication List Baloxavir Marboxil (Xofluza) 40 Mg Tablet, 40 MG PO ONCE Prescribed by: JOSUE JUAREZ on 08/21/222140 Methylprednisolone (Methylprednisolone Dose Pack) 4 Mg Tab.ds.pk, 4 MG PO UD Prescribed by: BILLIE ORDAZ on 11/04/21 011 Ondansetron (Ondansetron Odt) 4 Mg Tab.rapdis, 4 MG PO Q4H Prescribed by: LEONEL HOPKINS on 04/14/21 06 Pantoprazole Sodium (Protonix) 40 Mg Tablet.dr, 40 MG PO DAILY Prescribed by: LEONEL HOPKINS on 04/14/21 0609 Tramadol HCl (Ultram) 50 Mg Tablet, 50 MG PO Q4H Prescribed by: LEONEL HOPKINS on 04/14/21 0610 Past Doigkhb-Xbrvtk-Rtnjyv Hx Patient Social History Tobacco Use?: No Substance use?: No Alcohol Use?: Yes Alcohol Frequency: Once in a while Pt feels they are or have been: No Seasonal Allergies Seasonal Allergies: No Past Medical History Surgery/Hospitalization HX: "Right hand surgery in December of 2020; Tonsillectomy about 2 years ago." Surgeries: Yes Orthopedic, Tonsillectomy Respiratory: No Cardiac: No Neurological: No Reproductive Disorders: Yes Female Reproductive Disorders: Endometriosis Genitourinary: No Gastrointestinal: No Musculoskeletal: No Endocrine: No HEENT: No Cancer: No Psychosocial: No Integumentary: No Blood Disorders: No Family Medical History No Pertinent Family Hx Physical Exam Vital Signs Vital Signs - First Documented 08/21/22 20:30 Temp 37.0 Pulse 105 Resp 18 B/P (MAP) 128/77 (94) Pulse Ox 98 O2 Delivery Room Air Capillary Refill : Less Than 3 Seconds Height, Weight, BMI Height: '" Weight: lbs. oz. kg; 30.00 BMI Method: Progress/Results/Core Measures Suspected Sepsis SIRS Temperature: Pulse: 105 Respiratory Rate: 18 Blood Pressure 128 /77 Mean: 94 Results/Orders Lab Results Laboratory Tests Test 08/21/22 20:31 Range/Units Influenza Type A (RT-PCR) Detected H Not Detecte Influenza Type B (RT-PCR) Not Detected Not Detecte SARS-CoV-2 RNA (RT-PCR) Not Detected Not Detecte My Orders Orders - JOSUE JUAREZ [employer] Covid 19 Inhouse Test (08/21/22 20:10) Influenza A And B By Pcr (08/21/22 20:10) Vital Signs/I&O 08/21/22 20:30 Temp 37.0 Pulse 105 Resp 18 B/P (MAP) 128/77 (94) Pulse Ox 98 O2 Delivery Room Air Capillary Refill : Less Than 3 Seconds Blood Pressure Mean: 94 Departure Impression Primary Impression: Influenza Disposition: 01 HOME, SELF-CARE Condition: Improved Departure-Patient Inst. Decision time for Depature: 21:37 Referrals: [facility] [place] (PCP/Family) Primary Care Physician Patient Instructions: Flu, Adult ED Add. Discharge Instructions: Plan: 1. Discharge home. 2. Stay home for 5 days and then mask when in public for additional 5 days. If you are still running fever, you will need to stay home until you are fever free. 3. Wash your hands frequently, disinfect surfaces at home. Try to isolate yourself from others in the house as much as you are able. 4. Clean areas that may have blood, stool, or body fluids on them. 5. Cover your mouth and nose when you cough or sneeze, throw away tissues, and wash hands immediately. 6. May take Tylenol or Ibuprofen as needed for fever. You can take Tylenol and Ibuprofen at the same time. 7. Return to ER for any other new, concerning, or worsening symptoms. All discharge instructions reviewed with patient and/or family. Voiced understanding. Scripts Baloxavir Marboxil (Xofluza) 40 Mg Tablet 40 MG PO ONCE for 1 Day, #1 TAB 0 Refills Prov: JOSUE JUAREZ APRN 08/21/22 Work/School Note: Work Release Form Date Seen in the Emergency Department: Aug 21, 2022 Return to Work: Aug 27, 2022 JOSUE JUAREZ APRN Aug 21, 2022 21:25
[2022-08-21] MEDS ORDERED: BALO40TA4 PO (21:41)
[2022-08-21 21:45] VITALS: BP 128/77
== END 2022-08-21 21:45 | disposition home or self-care (01) ==
LOC: EDUNIT# 19:42 → ER 19:44
DX: J10.1 Influenza due to other identified influenza virus with other respiratory manifestations (principal); Z20.822 Contact with and (suspected) exposure to COVID-19; Z28.310 Unvaccinated for COVID-19
CPT/HCPCS: 87636; 99283

== ENCOUNTER 2022-09-29 23:09 | Emergency (ER) | payer BC ==
[~2022-09-29] VITALS: Ht 160 cm; Wt 79.4 kg
[~2022-09-29 23:09] MED LIST changes: +BALO40TA4 PO
[2022-09-29] MEDS ORDERED: OLOPATADINE 0.1 % OPHTH (PATANOL) 5 ML BTL OU STA (23:25)
[2022-09-29] MEDS ORDERED: diphenhydrAMINE 50 MG/ML INJ (BENADRYL) IVP ONE (23:30)
[2022-09-29] MEDS ORDERED: FAMOTIDINE 20 MG (PEPCID) TABLET PO ONE (23:30)
--- NOTE | 2022-09-30 00:20 | ED General ---
General Chief Complaint: Allergic Reaction Stated Complaint: ALLERGIC REACTION Nursing Triage Note: PT AMB TO RM 3 W C/O POSS ALLERGIC REACTION. REPORTS AT APPROX 2300 TONGIHT HER EYES BEGAN ITCHING AND SWELLING. PT THEN WENT TO FRIENDS HOUSE AND OBTAINED UNK "ALLERGY MEDICATION" BEFORE EXPERIENCING WHAT SHE DESCRIBES A PANIC ATTACK. PT REPORTS SHE THEN HAD TROUBLE SWALLOWING AND IT WAS HARD TO BREATHE THROUGH HER NOSE, PT DENIES THROAT SWELLING/SOA AT THIS TIME. PT A&OX4. Source of Information: Patient Exam Limitations: No Limitations History of Present Illness Date Seen by Provider: Sep 29, 2022 Allergies and Home Medications Allergies Coded Allergies: No Known Drug Allergies (Unverified , 02/10/20) Patient Home Medication List Baloxavir Marboxil (Xofluza) 40 Mg Tablet, 40 MG PO ONCE Prescribed by: JOSUE JUAREZ on 08/21/222140 Methylprednisolone (Methylprednisolone Dose Pack) 4 Mg Tab.ds.pk, 4 MG PO UD Prescribed by: BILLIE ORDAZ on 11/04/21 0111 Ondansetron (Ondansetron Odt) 4 Mg Tab.rapdis, 4 MG PO Q4H Prescribed by: LEONEL HOPKINS on 04/14/21 0609 Pantoprazole Sodium (Protonix) 40 Mg Tablet.dr, 40 MG PO DAILY Prescribed by: LEONEL HOPKINS on 04/14/21 0609 Tramadol HCl (Ultram) 50 Mg Tablet, 50 MG PO Q4H Prescribed by: LEONEL HOPKINS on 04/14/21 0610 Past Oubhosf-Xwpfov-Hsvfbl Hx Patient Social History Tobacco Use?: No Use of E-Cig and/or Vaping dev: No Substance use?: Yes Substance type: Marijuana Alcohol Use?: Yes Alcohol Frequency: Once in a while Immunizations Up To Date Influenza Vaccine Up-to-Date: No; Not Current First/Initial COVID19 Vaccinat: NONE Second COVID19 Vaccination Jaxson: NONE Third COVID19 Vaccination Date: NONE COVID19 Vaccine Laboratory Associate: NONE Seasonal Allergies Seasonal Allergies: No Past Medical History Surgery/Hospitalization HX: "Right hand surgery in December of 2020; Tonsillectomy about 2 years ago." Surgeries: Yes Orthopedic, Tonsillectomy Respiratory: No Cardiac: No Neurological: No Last Menstrual Period: Sep 15, 2022 Reproductive Disorders: Yes Female Reproductive Disorders: Endometriosis Genitourinary: No Gastrointestinal: No Musculoskeletal: No Endocrine: No HEENT: No Cancer: No Psychosocial: No Integumentary: No Blood Disorders: No Family Medical History No Pertinent Family Hx Physical Exam Vital Signs Vital Signs - First Documented 09/29/22 23:11 Temp 36.8 Pulse 96 Resp 20 B/P (MAP) 143/86 (105) Pulse Ox 100 O2 Delivery Room Air Capillary Refill : Less Than 3 Seconds Height, Weight, BMI Height: '" Weight: lbs. oz. kg; 31.00 BMI Method: Progress/Results/Core Measures Suspected Sepsis SIRS Temperature: Pulse: 96 Respiratory Rate: 20 Blood Pressure 143 /86 Mean: 105 Results/Orders My Orders Orders - SUZY AMARAL MD Diphenhydramine Injection (Benadryl Inje (09/29/22 23:30) Famotidine Tablet (Pepcid Tablet) (09/29/22 23:30) Medications Given in ED Current Medications Medications Dose Ordered Sig/Leoncio Route Start Time Stop Time Status Last Admin Dose Admin Diphenhydramine HCl 25 mg ONCE ONCE IVP 09/29/22 23:30 09/29/22 23:31 DC 09/29/22 23:38 25 MG Famotidine 20 mg ONCE ONCE PO 09/29/22 23:30 09/29/22 23:31 DC 09/29/22 23:37 20 MG Vital Signs/I&O 09/29/22 23:11 Temp 36.8 Pulse 96 Resp 20 B/P (MAP) 143/86 (105) Pulse Ox 100 O2 Delivery Room Air Capillary Refill : Less Than 3 Seconds Blood Pressure Mean: 105 Departure Impression Primary Impression: Allergic reaction Qualified Codes: T78.40XA - Allergy, unspecified, initial encounter Additional Impression: Allergic conjunctivitis Qualified Codes: H10.13 - Acute atopic conjunctivitis, bilateral Disposition: HOME, SELF-CARE Condition: Improved Departure-Patient Inst. Decision time for Depature: 00:16 Referrals: [facility] (PCP/Family) Primary Care Physician Patient Instructions: Allergic Reaction ED, Conjunctivitis (Noninfectious [place]key[place]) Add. Discharge Instructions: For rebound allergy symptoms you may take Benadryl (diphenhydramine) up to 50 mg every 4 hours as needed. For long-acting relief you may take loratadine 10 mg every 24 hours. You may additionally take allergy eyedrops such as Pataday or Patanol (olopatadine) purchased [id number]. Washer wash or clean any items that may have been contaminated by the incidence. Dispose of the NSAIDs and do not use that type of them since again. Return to the emergency room if you have worsening symptoms, especially if you develop any swelling of the tongue, throat or lips, or develop difficulty breathing. If necessary, call 911. All discharge instructions reviewed with patient and/or family. Voiced understanding. SUZY AMARAL MD Sep 30, 2022 00:20
[2022-09-30 00:29] VITALS: BP 127/85
== END 2022-09-30 00:29 | disposition home or self-care (01) ==
LOC: EDUNIT# 23:09 → ER 23:11
DX: H10.10 Acute atopic conjunctivitis, unspecified eye (principal); T50.905A Adverse effect of unspecified drugs, medicaments and biological substances, initial encounter; Z28.310 Unvaccinated for COVID-19
CPT/HCPCS: 99283